=== PATIENT | female | born 1995 | race Caucasian/White ===

== ENCOUNTER → 2023-01-15 | Outpatient (REF) | payer OTHER ==
[2023-01-15 18:37] LABS: PERCENT SATURATION 29.5 % (13.2-45.0)
[2023-01-15 18:40] LABS: FERRITIN 25.1 NG/ML (7.3-270.7)
== END ==
LOC: M LAB REF 17:15
PROVIDERS: ATTEND Internal Medicine
DX: R10.2 Pelvic and perineal pain (principal)

== ENCOUNTER → 2023-01-27 | Outpatient (CLI) | payer OTHER | LOC: M WHC 07:01 | PROVIDERS: ATTEND Internal Medicine | DX: N92.6 Irregular menstruation, unspecified (principal) ==

== ENCOUNTER → 2024-05-15 | Outpatient (CLI) | payer OTHER ==
[2024-05-15 11:29] LABS: HEMATOCRIT 40.4 % (36.0-47.0); HEMOGLOBIN 13.9 g/dl (12.0-15.5); MEAN CORPUSCULAR HEMOGLOBIN 29.3 pg (27.0-33.0); MEAN CORPUSCULAR HGB CONC 34.4 g/dl (32.0-36.5); MEAN CORPUSCULAR VOLUME 85.2 fl (80.0-96.0); PLATELET COUNT, AUTOMATED 272 10^3/uL (150-450); RED BLOOD COUNT 4.74 10^6/uL (4.00-5.40); WHITE BLOOD COUNT 11.9 10^3/uL (4.0-10.0)
[2024-05-15 12:31] LABS: HIV 1&2 SCREEN NEGATIVE (NEGATIVE)
[2024-05-15 12:39] LABS: HEPATITIS C VIRUS ABY INDEX 0.07 INDEX (<0.8)
[2024-05-15 12:50] LABS: GC DNA AMPLIFICATION NEGATIVE (NEGATIVE)
== END ==
LOC: M PLALAB 09:25
PROVIDERS: ATTEND Obstetrics & Gynecology
DX: Z34.91 Encounter for supervision of normal pregnancy, unspecified, first trimester (principal)

== ENCOUNTER → 2024-07-25 | Outpatient (CLI) | payer OTHER | LOC: M WHC 07:44 | PROVIDERS: ATTEND Obstetrics & Gynecology | DX: Z34.80 Encounter for supervision of other normal pregnancy, unspecified trimester (principal) ==

== ENCOUNTER → 2024-08-28 | Outpatient (CLI) | payer OTHER ==
[2024-08-28 12:38] LABS: HEMATOCRIT 38.1 % (36.0-47.0); HEMOGLOBIN 13.1 g/dl (12.0-15.5); MEAN CORPUSCULAR HEMOGLOBIN 30.3 pg (27.0-33.0); MEAN CORPUSCULAR HGB CONC 34.4 g/dl (32.0-36.5); PLATELET COUNT, AUTOMATED 249 10^3/uL (150-450); RED BLOOD COUNT 4.33 10^6/uL (4.00-5.40); WHITE BLOOD COUNT 13.7 10^3/uL (4.0-10.0)
[2024-08-28 13:09] LABS: GLUCOSE CHALLENGE TEST 1 HOUR 126 MG/DL (LESS THAN 140)
[2024-08-28 13:44] LABS: HIV 1&2 SCREEN NEGATIVE (NEGATIVE)
[2024-08-28 14:16] LABS: GC DNA AMPLIFICATION NEGATIVE (NEGATIVE)
== END ==
LOC: M PLALAB 10:37
PROVIDERS: ATTEND Specialist
DX: Z34.02 Encounter for supervision of normal first pregnancy, second trimester (principal)

== ENCOUNTER → 2024-08-30 | Outpatient (CLI) | payer OTHER | LOC: M RAD 14:35 | PROVIDERS: ATTEND Specialist | DX: Z34.02 Encounter for supervision of normal first pregnancy, second trimester (principal) ==

== ENCOUNTER → 2024-10-03 | Outpatient (CLI) | payer OTHER | LOC: M RAD 11:13 | PROVIDERS: ATTEND Nurse Practitioner Family | DX: Z34.83 Encounter for supervision of other normal pregnancy, third trimester (principal) ==

== ENCOUNTER → 2024-11-02 | Outpatient (CLI) | payer OTHER ==
[2024-11-02 17:44] LABS: HEMATOCRIT 37.2 % (36.0-47.0); HEMOGLOBIN 12.9 g/dl (12.0-15.5); MEAN CORPUSCULAR HEMOGLOBIN 29.7 pg (27.0-33.0); MEAN CORPUSCULAR HGB CONC 34.7 g/dl (32.0-36.5); MEAN CORPUSCULAR VOLUME 85.5 fl (80.0-96.0); PLATELET COUNT, AUTOMATED 235 10^3/uL (150-450); RED BLOOD COUNT 4.35 10^6/uL (4.00-5.40); WHITE BLOOD COUNT 13.3 10^3/uL (4.0-10.0)
[2024-11-02 17:55] LABS: LDH LACTATE DEHYDROGENASE 246 U/L (120-246)
[2024-11-02 17:56] LABS: ALT/SGPT 22 U/L (7.0-40); AST/SGOT 23 U/L (<34); BILIRUBIN,TOTAL 0.6 MG/DL (0.3-1.2); CREATININE FOR GFR 0.57 MG/DL (0.55-1.30); GLOMERULAR FILTRATION RATE > 60.0 (>60)
[2024-11-02 18:55] LABS: TOTAL PROTEIN,RANDOM URINE 32.1 MG/DL (0.0-14.0)
[2024-11-02 19:00] LABS: CREATININE,RANDOM URINE 141.4 MG/DL
== END ==
LOC: M PLALAB 15:32
PROVIDERS: ATTEND Nurse Practitioner Family
DX: O13.3 Gestational [pregnancy-induced] hypertension without significant proteinuria, third trimester (principal)

== ENCOUNTER 2024-11-11 13:37 | Inpatient (IN) | payer OTHER ==
[~2024-11-11] VITALS: Ht 165.1 cm; Wt 91.8 kg
[2024-11-11] VITALS (14 sets, daily range): BP systolic 133–160; BP diastolic 93–103
[2024-11-11] MEDS ORDERED: ACET-907 PO (14:11)
[2024-11-11] MEDS ORDERED: PRENTAB9 PO (14:11)
[2024-11-11] MEDS ORDERED: HOME MED LIST COMPLETE! XX SCH (14:15)
[2024-11-11 14:58] LABS: HEMATOCRIT 35.5 % (36.0-47.0); HEMOGLOBIN 12.6 g/dl (12.0-15.5); MEAN CORPUSCULAR HEMOGLOBIN 29.9 pg (27.0-33.0); MEAN CORPUSCULAR HGB CONC 35.5 g/dl (32.0-36.5); MEAN CORPUSCULAR VOLUME 84.1 fl (80.0-96.0); PLATELET COUNT, AUTOMATED 196 10^3/uL (150-450); RED BLOOD COUNT 4.22 10^6/uL (4.00-5.40); WHITE BLOOD COUNT 13.9 10^3/uL (4.0-10.0)
[2024-11-11] MEDS ORDERED: CARBOPROST TROMETHAMINE 250 MCG/ML AMP IM PRN (15:15)
[2024-11-11] MEDS ORDERED: METHYLERGONOVINE MALEATE 0.2MG/ML 1ML VIAL IM PRN (15:15)
[2024-11-11 15:20] LABS: URIC ACID 6.4 MG/DL (3.1-7.8)
[2024-11-11 15:22] LABS: LDH LACTATE DEHYDROGENASE 249 U/L (120-246)
[2024-11-11 15:23] LABS: ALT/SGPT 19 U/L (7.0-40); AST/SGOT 19 U/L (<34); BILIRUBIN,TOTAL 0.5 MG/DL (0.3-1.2); CREATININE FOR GFR 0.61 MG/DL (0.55-1.30); GLOMERULAR FILTRATION RATE > 60.0 (>60)
[2024-11-11] MEDS: miSOPROStol 50MCG 1/2 TABLET PO SCH (15:51)
[2024-11-11 16:03] LABS: HEPATITIS C VIRUS ABY INDEX 0.11 INDEX (<0.8)
[2024-11-11 17:33] LABS: TOTAL PROTEIN,RANDOM URINE 62.9 MG/DL (0.0-14.0)
[2024-11-11 17:38] LABS: CREATININE,RANDOM URINE 196.9 MG/DL
[2024-11-11 18:30] LABS: HIV 1&2 SCREEN NEGATIVE (NEGATIVE)
[2024-11-12] VITALS (51 sets, daily range): BP systolic 120–175; BP diastolic 63–114
[2024-11-12] MEDS: OXYTOCIN DRIP 30 UNITS in IV 1 EA IV SCH (10:27)
[2024-11-12] MEDS: LR 1,000 ML IV SCH (10:27)
[2024-11-12] MEDS: LABETALOL 100MG/20ML VIAL IV STA ×2 (12:02→13:48)
[2024-11-12] MEDS: NIFEdipine 10 MG CAP PO STA (14:13)
[2024-11-12] MEDS ORDERED: LR 500 ML IV PRN (15:00)
[2024-11-12] MEDS ORDERED: diphenhydrAMINE 50MG/ML VIAL IV PRN (15:00)
[2024-11-12] MEDS ORDERED: ePHEDrine SULFATE 25 MG/5 ML(5MG/ML) SYRINGE IVP PRN (15:00)
[2024-11-12] MEDS ORDERED: EPIDURAL/PCA KEYS XX PRN (15:00)
[2024-11-12] MEDS ORDERED: NALOXONE INJ 0.4MG/1ML VIAL IV PRN (15:00)
[2024-11-12] MEDS: FENTANYL/ROPIVACAINE/NACL BAG 100 ML EPIDURAL SCH (15:47)
[2024-11-12] MEDS: ONDANSETRON 4MG 2ML VIAL IV PRN (20:19)
[2024-11-13] VITALS (64 sets, daily range): BP systolic 124–185; BP diastolic 63–117; TEMP 97.1–99.3; O2SAT 96–98
[2024-11-13] MEDS ORDERED: NIFEdipine 10 MG CAP As Ordered ONE (09:21)
[2024-11-13] MEDS: NIFEdipine 10 MG CAP PO STA (09:22)
[2024-11-13] MEDS: METOCLOPRAMIDE INJ 10MG/2ML VIAL IV ONE (10:28)
[2024-11-13] MEDS: LIDOCAINE 1% MDV 20ML VIAL INFIL PRN (12:07)
[2024-11-13] MEDS: OXYTOCIN DRIP 30 UNITS in IV 1 EA IV PRN (12:07)
[2024-11-13] MEDS: TRANEXAMIC ACID INJection 1,000 MG in NS 100 ML IV PRN (12:15)
[2024-11-13] MEDS: MAG Sulf (L&D) 4 GM/100 ML 4 GM in IV 1 EA IV ONE (13:00)
[2024-11-13] MEDS: MAG Sulf (OBGYN) 20GM/500ML 20,000 MG in IV 1 EA IV SCH (13:19)
[2024-11-13] MEDS ORDERED: RHOGAM 300MCG (1500IU) INJ IM SCH (14:10)
[2024-11-13] MEDS ORDERED: ACETAMINOPHEN 500 MG TAB PO PRN (14:10)
[2024-11-13] MEDS ORDERED: IBUPROFEN 600MG TAB PO PRN (14:10)
[2024-11-13] MEDS ORDERED: IBUPROFEN 800 MG TAB PO PRN (14:10)
[2024-11-13] MEDS ORDERED: DIBUCAINE 1% OINTMENT 30GM TOP PRN (14:10)
[2024-11-13] MEDS ORDERED: ANUSOL HC CREAM 30GM TOP PRN (14:10)
[2024-11-13] MEDS ORDERED: MOM 30ML SUSPENSION UDC PO PRN (14:10)
[2024-11-13] MEDS: LABETALOL 200 MG TAB PO ONE (16:12)
[2024-11-13] MEDS: LACTATED RINGER'S 1000 ML IV STA (17:01)
[2024-11-13] MEDS: OXYTOCIN INJ 10UNITS/ML 1ML VIAL IM ONE (18:40)
[2024-11-13 19:00] LABS: HEMATOCRIT 35.6 % (36.0-47.0); HEMOGLOBIN 12.4 g/dl (12.0-15.5); MEAN CORPUSCULAR HEMOGLOBIN 29.9 pg (27.0-33.0); MEAN CORPUSCULAR HGB CONC 34.8 g/dl (32.0-36.5); MEAN CORPUSCULAR VOLUME 85.8 fl (80.0-96.0); PLATELET COUNT, AUTOMATED 197 10^3/uL (150-450); RED BLOOD COUNT 4.15 10^6/uL (4.00-5.40); WHITE BLOOD COUNT 28.6 10^3/uL (4.0-10.0)
[2024-11-13] MEDS: AMPICILLIN SOD/SULBACTAM SOD 3 GM in SODIUM CHLORIDE 0.9% 100ML ADD 100 ML IV ONE (20:54)
[2024-11-13] MEDS: LR 1,000 ML IV SCH (23:00)
[2024-11-14] VITALS (20 sets, daily range): BP systolic 124–156; BP diastolic 62–100; TEMP 97.9; O2SAT 96–98
[2024-11-14 07:57] LABS: HEMOGLOBIN 10.8 g/dl (12.0-15.5); MEAN CORPUSCULAR HEMOGLOBIN 29.5 pg (27.0-33.0); MEAN CORPUSCULAR HGB CONC 34.8 g/dl (32.0-36.5); MEAN CORPUSCULAR VOLUME 84.7 fl (80.0-96.0); PLATELET COUNT, AUTOMATED 137 10^3/uL (150-450); RED BLOOD COUNT 3.66 10^6/uL (4.00-5.40); WHITE BLOOD COUNT 21.7 10^3/uL (4.0-10.0)
[2024-11-14 08:33] LABS: URIC ACID 6.1 MG/DL (3.1-7.8)
[2024-11-14 08:36] LABS: LDH LACTATE DEHYDROGENASE 350 U/L (120-246)
[2024-11-14 08:55] LABS: ALT/SGPT 17 U/L (7.0-40); AST/SGOT 25 U/L (<34); BILIRUBIN,TOTAL 1.2 MG/DL (0.3-1.2); GLOMERULAR FILTRATION RATE > 60.0 (>60)
[2024-11-14] MEDS: ACETAMINOPHEN 325 MG TAB PO PRN (09:05)
[2024-11-14] MEDS: DOCUSATE SODIUM 100MG CAPSULE PO PRN (09:08)
[2024-11-14] MEDS: NIFEdipine 30MG XL TAB PO SCH (09:08)
[2024-11-14] MEDS: PRENATAL VITAMINS CHEWABLE TABLET PO SCH (09:08)
[2024-11-15 02:15] VITALS: BP 124/74; O2SAT 97
[2024-11-15 06:07] VITALS: BP 123/86; O2SAT 98
[2024-11-15 07:40] LABS: HEMATOCRIT 32.2 % (36.0-47.0); HEMOGLOBIN 11.1 g/dl (12.0-15.5); MEAN CORPUSCULAR HEMOGLOBIN 29.9 pg (27.0-33.0); MEAN CORPUSCULAR HGB CONC 34.5 g/dl (32.0-36.5); MEAN CORPUSCULAR VOLUME 86.8 fl (80.0-96.0); PLATELET COUNT, AUTOMATED 165 10^3/uL (150-450); RED BLOOD COUNT 3.71 10^6/uL (4.00-5.40)
[2024-11-15 08:41] VITALS: BP 140/87
[2024-11-15] MEDS: MEASLES,MUMPS,RUBELLA VACCINE INJ (MMR-II) SC.IMMUN ONE (09:00)
[2024-11-15 10:00] VITALS: BP 127/83; O2SAT 97
[2024-11-15 10:57] LABS: HEMATOCRIT 31.6 % (36.0-47.0); HEMOGLOBIN 10.8 g/dl (12.0-15.5); MEAN CORPUSCULAR HEMOGLOBIN 29.8 pg (27.0-33.0); MEAN CORPUSCULAR HGB CONC 34.2 g/dl (32.0-36.5); MEAN CORPUSCULAR VOLUME 87.1 fl (80.0-96.0); PLATELET COUNT, AUTOMATED 170 10^3/uL (150-450); RED BLOOD COUNT 3.63 10^6/uL (4.00-5.40); WHITE BLOOD COUNT 17.3 10^3/uL (4.0-10.0)
[2024-11-15] MEDS ORDERED: NIFE1TAB52 PO (13:16)
[2024-11-15] MEDS ORDERED: FERR324T21 PO (13:20)
== END 2024-11-15 14:45 | disposition home or self-care (01) | DRG 807 ==
LOC: M LDI 13:37 → M OBS 11-14 08:13
PROVIDERS: ADMIT Obstetrics & Gynecology; ATTEND Advanced Practice Midwife
PROC: 3E0P7GC Introduction of Other Therapeutic Substance into Female Reproductive, Via Natural or Artificial Opening (ICD-10-PCS; 2024-11-11)
PROC: 10E0XZZ Delivery of Products of Conception, External Approach (ICD-10-PCS; principal; 2024-11-13)
PROC: 0HQ9XZZ Repair Perineum Skin, External Approach (ICD-10-PCS; 2024-11-13)
PROC: 30233N1 Transfusion of Nonautologous Red Blood Cells into Peripheral Vein, Percutaneous Approach (ICD-10-PCS; 2024-11-13)
DX: O13.4 Gestational [pregnancy-induced] hypertension without significant proteinuria, complicating childbirth (principal); Z37.0 Single live birth; Z3A.37 37 weeks gestation of pregnancy; O70.0 First degree perineal laceration during delivery; O72.1 Other immediate postpartum hemorrhage